=== PATIENT | male | born 1980 | race Asian ===

== ENCOUNTER 2023-04-01 12:20 | Emergency (ER) | payer SELFPAY ==
[2023-04-01 12:22] VITALS: BP 128/78
[2023-04-01 13:46] VITALS: BP 117/94; BMI 25.7
--- NOTE | 2023-04-01 14:10 | ED.GENMED ---
History of Present Illness
General
Chief Complaint: Musculo-Skeletal Complaint
Source: patient
Exam Limitations: none
Time Seen by Provider: 04/01/23 12:53
Nursing documentation reviewed up to this point in time: agreed with
Travel History
Have you had any contact with someone who has COVID-19?: No
Do you have any symptoms of coronavirus? Fever > 100 degrees, chills, cough, shortness of breath, sore throat, loss of taste or smell, muscle aches, or headache?: No
History of Present Illness
History of Present Illness:
43-year-old male with past medical history of hyperlipidemia presenting to the emergency department today with concerns of right upper neck and back discomfort over the past few days with some radiation down his right arm today. Denies any chest
pain shortness of breath nausea vomiting diaphoresis. Denies any known history of heart disease. Denies any family history of early heart disease but his father had heart disease in his 60s. Denies any history of recent trauma surgery
immobilization blood clots leg swelling or any risk factors for PE.
Review of Systems
Review of Systems
Allergies reviewed?: Yes
All Other Systems: ROS reviewed and negative except as documented in HPI and ROS
Phy Exam
Physical Exam
Physical Exam:
GENERAL: Alert , in no apparent distress
EYE: pupils equal and reactive
NECK: Supple, no significant adenopathy.
ENT: o/p clr, mmm.
CARDIAC: Regular rate and rhythm .
LUNGS: Clear breath sounds bilaterally, no acute respiratory distress, no wheezes/rales/rhonchi
ABDOMEN: Soft, without focal tenderness, no r/g, no cvat
NEUROLOGICAL: Alert and oriented, no focal neuro deficits
SKIN: Warm and dry, skin intact.
MUSCULOSKELETAL: Reproducible discomfort to the right trapezius muscle no midline neck pain radiation down the right arm with certain movements of the neck and head. Reproducible pain with shrugging of the right shoulder no overlying swelling no
redness or warmth, well perfused.
PSYCH: Normal and appropriate interaction.
Course
Orders/Labs/Results
Orders:
Orders
04/01/23 12:25
Electrocardiogram (*1) Urgent
Reason for Study: Chest Pain
EKG- Treatment ONCE
Vital Signs
Initial and Last Documented VS:
Initial Vital Signs
Temp Pulse Resp BP Pulse Ox
98.4 F 72 16 128/78 98
04/01/23 12:22 04/01/23 12:22 04/01/23 12:22 04/01/23 12:22 04/01/23 12:22
Last Documented Vital Signs
Temp Pulse Resp BP Pulse Ox
98.4 F 66 16 117/94 99
04/01/23 12:22 04/01/23 13:46 04/01/23 13:46 04/01/23 13:46 04/01/23 13:46
MDM/Problems Addressed
MDM/Problems Addressed:
43-year-old male presenting to the emergency department today with concerns of right upper and posterior neck and upper back discomfort over the past few days with some discomfort rating down the right arm. Symptoms seem to be consistent with
radicular discomfort. Is reproducible to palpation and with movement. EKG is normal sinus very unlikely consistent with referred. Plan for symptomatic treatment and close outpatient follow-up return precautions given.
*Critical Care Note
Total Time (30-74mins, 75-104mins- exclusive of procedures): Not Applicable
ED Attending Note
-
Portions of this chart may have been created with voice recognition software.� Occasional wrong word or��sound alike� substitutions may have occurred due to the inherent limitations of voice recognition software.
Discharge Plan
Departure
Patient Disposition: Home (Routine Discharge)
Date of Disposition: 04/01/23
Time of Disposition: 14:12
Patient with high blood pressure during this ER visit?: No
Condition: Good
Covid-19: Not Applicable
Discharge Problem:
Neck pain
Instructions: Muscle and Bone Pain (DC)
Prescriptions:
New
ibuprofen 600 mg tablet
600 mg PO Q6H PRN (Reason: Pain) Qty: 14 0RF
cyclobenzaprine 10 mg tablet
10 mg PO HS PRN (Reason: muscle spasm) Qty: 7 0RF
No Action
acetaminophen [Tylenol Ex Str Rapid Release] 500 mg Tablet
1,000 mg PO Q6H PRN (Reason: as directed)
fenofibrate 160 mg Tablet
160 mg PO DAILY
Activity Restrictions/Additional Instructions:
You came to the emergency department today with concerns of upper back and neck discomfort. Here you had a normal EKG which was very reassuring. This is likely a muscle strain. Please rest and take the medications as prescribed over the next few
days. Return to the emergency department for any worsening, new or concerning symptoms.
Interventions
Interventions:
*General Assessment Last Done: 04/01/23 12:22
*Neglect/Abuse Screening Last Done: 04/01/23 12:35
ED- Fall Risk Assessment Last Done: 04/01/23 12:35
*ED COVID-19 Vaccine History Last Done: 04/01/23 12:22
ED-Musculoskeletal Assessment Last Done: 04/01/23 12:32
[2023-04-01] MEDS: TYLENOL 650 MG PO (14:35)
[2023-04-01] MEDS: MOTRIN 600 MG PO (14:36)
== END 2023-04-01 14:45 | disposition home or self-care (01) ==
LOC: EMR 12:20
PROVIDERS: EMERGENCY PHYSICIAN Emergency Medicine; FAMILY PHYSICIAN Family Medicine
DX: M54.2 Cervicalgia (principal); M54.6 Pain in thoracic spine; M79.601 Pain in right arm; E78.5 Hyperlipidemia, unspecified; Z90.49 Acquired absence of other specified parts of digestive tract; Z82.49 Family history of ischemic heart disease and other diseases of the circulatory system
CPT/HCPCS: 99283; 93005

== ENCOUNTER 2024-08-14 11:26 | Emergency (ER) | payer OTHER, SELFPAY ==
[2024-08-14 11:27] VITALS: BP 127/81
[2024-08-14 11:59] VITALS: BMI 26.2
--- NOTE | 2024-08-14 12:01 | ED.GENMED ---
History of Present Illness
General
Chief Complaint: Back Pain
Source: patient and spouse
Exam Limitations: none
Time Seen by Provider: 08/14/24 11:46
Nursing documentation reviewed up to this point in time: agreed with
History of Present Illness
History of Present Illness:
Note:
CHIEF COMPLAINT(S)
Back pain.
HISTORY OF PRESENT ILLNESS
The patient is a 44-year-old male presenting with back pain. The symptoms began three to four days ago, with pain located on both the left and right sides of the back. The patient reports no specific injury or event associated with the onset. He
denies taking medication for the pain. The pain is neither aggravated nor relieved by activity, and he speculates it may have begun during sleep. 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 Past medical history is
significant for hypertriglyceridemia and hyperlipidemia. Recent laboratory results show a glucose level of 106 mg/dL and a hemoglobin A1c of 6.8%, suggesting a borderline diabetic state. His primary care physician ordered these tests, and he is
awaiting a follow-up appointment on August 26.
ALLERGIES
No known drug allergies.
MEDICATIONS
The patient takes fenofibrate 160 mg for hypertriglyceridemia and a statin (possibly atorvastatin) for hyperlipidemia. There is mention of taking supplemental fiber and estrogen.
PHYSICAL EXAM
- General: No acute distress.
- Cardiovascular: Normal S1, S2, no S3, S4, no murmurs.
- Pulmonary: Lungs clear bilaterally, no respiratory distress.
- Abdomen: Soft, non-tender, no costovertebral angle (CVA) tenderness.
- Musculoskeletal: No step-off on spinal exam, no tenderness to palpation.
- Neurological: Cranial nerves II-XII intact.
- Extremities: No edema, normal pulses.
PLAN
The plan includes obtaining a back X-ray and administering pain medication. A urine sample will also be requested for further evaluation. The patient is advised to continue follow-up with his primary care physician for management of blood glucose
levels and potential initiation of metformin.
DIFFERENTIAL DIAGNOSIS
The Differential Diagnosis includes, in no particular order and is not limited to:
1. Muscular strain
2. Intervertebral disc disease
3. Spinal stenosis
4. Kidney stone
5. Urinary tract infection
6. Pyelonephritis
7. Osteoarthritis
8. Fracture
9. Abdominal aortic aneurysm
10. Pancreatitis
CARE-UPDATE
08/14/24 - 14:31
Urinalysis results are normal, with no glucose detected. Back x-ray indicates no degenerative changes, suggesting muscle strain rather than kidney stones or infections. Recommended treatment includes Tylenol or ibuprofen, supplemented with heat and
ice application. Patient reassured and deemed fit for discharge.
Disposition:
SUMMARY OF ENCOUNTER
The patient, a 44-year-old male, presented with back pain without a specific injury. After evaluation, the condition was identified as a muscle strain.
DISPOSITION
The patient was discharged home in good condition with instructions for pain management and follow-up.
PLAN
The patient is advised to take Tylenol or ibuprofen for pain relief. He is also advised to follow up with the primary care physician for elevated blood sugar management.
INDEPENDENT REVIEW OF LABS AND INTERPRETATION OF TESTS
My independent interpretation of the back X-ray is that there are no degenerative changes, supporting a diagnosis of muscle strain. The urinalysis results are normal, with no glucose detected.
MEDICATION RECONCILIATION
The patient is instructed to use [id number] pain medications such as Tylenol or ibuprofen.
MEDICAL DECISION MAKING
1. Number & Complexity of Problems: Chronic conditions affecting care include hypertriglyceridemia and hyperlipidemia. The differential diagnoses considered for back pain clarified the condition as muscle strain.
2. Data Reviewed: Reviewed the back X-ray and urinalysis results.
3. Risk: Outpatient management was deemed appropriate given the lack of high-risk findings or emergency conditions. Pain medications were considered appropriate for discharge.
PATIENT EDUCATION AND COUNSELING
The patient was reassured about the benign nature of his condition and educated on proper use of pain relief methods including medication, heat, and ice application.
FOLLOW-UP INSTRUCTIONS
The patient is to follow up with primary care for further evaluation of blood glucose levels and management.
PATHOLOGIES TO CONSIDER
Muscular strain was diagnosed, with consideration given to exclude serious conditions such as intervertebral disc disease, spinal stenosis, kidney stones, urinary tract infections, and abdominal conditions like AAA or pancreatitis.
Phy Exam
Physical Exam
Physical Exam:
.
Course
Orders/Labs/Results
Orders:
Orders
08/14/24 12:00
Bedside Glucose- Treatment ONCE
Lumbar Spine Complete, 4 View [CR Lumbar Spine Comp Min 4 Vw*] Urgent
Comment:
Reason For Exam: low back pain
08/14/24 12:17
Urinalysis Reflex To Culture Urgent
Date Specimen was Collected: 08/14/24
Time Specimen was Collected: 12:16
Abnormal Lab Results
08/14/24
12:02
POC Glucose 185 H mg/dl
(70-99)
Vital Signs
Initial and Last Documented VS:
Initial Vital Signs
Temp Pulse Resp BP Pulse Ox
97.7 F 74 15 127/81 94
08/14/24 11:27 08/14/24 11:27 08/14/24 11:27 08/14/24 11:27 08/14/24 11:27
Last Documented Vital Signs
Temp Pulse Resp BP Pulse Ox
97.7 F 74 15 127/81 94
08/14/24 11:27 08/14/24 11:27 08/14/24 11:27 08/14/24 11:27 08/14/24 12:01
*Pulse Oximetry
SaO2: 94
Oxygen Mode of Delivery: Room air
Patient hypoxic: no
*Critical Care Note
Total Time (30-74mins, 75-104mins- exclusive of procedures): Not Applicable
ED Attending Note
-
Portions of this chart may have been created with voice recognition software.� Occasional wrong word or��sound alike� substitutions may have occurred due to the inherent limitations of voice recognition software.
Discharge Plan
Departure
Patient Disposition: Home (Routine Discharge)
Date of Disposition: 08/14/24
Time of Disposition: 14:32
Patient with high blood pressure during this ER visit?: Yes
Condition: Good
Discharge Problem:
Low back strain, Diabetes mellitus
Instructions: Low Back Pain (DC), Diabetes and diet, BLOOD PRESSURE
Prescriptions:
No Action
acetaminophen [Tylenol Ex Str Rapid Release] 500 mg Tablet
1,000 mg PO Q6H PRN (Reason: as directed)
fenofibrate 160 mg Tablet
160 mg PO DAILY
ibuprofen 600 mg tablet
600 mg PO Q6H PRN (Reason: Pain) Qty: 14 0RF
cyclobenzaprine 10 mg tablet
10 mg PO HS PRN (Reason: muscle spasm) Qty: 7 0RF
Referrals:
Gilberto Means DO [Family Provider, Family Practice] - Call in 1-3 days for appt
Activity Restrictions/Additional Instructions:
Follow-up with primary care for your diabetes. You may need to start on an oral medication. Discussed that with your primary care physician. Return for any concerns.
Interventions
Interventions:
*Risk Screen - Suicide Last Done: 08/14/24 11:27
*General Assessment Last Done: 08/14/24 11:27
*Neglect/Abuse Screening Last Done: 08/14/24 11:27
*ED COVID-19 Vaccine History Last Done: 08/14/24 11:29
ED-Musculoskeletal Assessment Last Done: 08/14/24 12:33
Discharge Date and Time
Print Language: KAZAKH
[2024-08-14 12:04] LABS: Glucose - Point of Care 185 mg/dl (70-99)
[2024-08-14 12:29] LABS: Urine Albumin Negative (Neg - Trace); Urine Bilirubin Negative (Negative); Urine Character Clear (Clear); Urine Color Yellow; Urine Glucose Negative (Negative); Urine Ketone Negative (Negative); Urine Leukocyte Negative (Negative); Urine Nitrite Negative (Negative); Urine Occult Blood Negative (Negative); Urine Specific Gravity 1.025 (<1.030); Urine Urobilinogen Negative (Neg - 1+)
== END 2024-08-14 14:49 | disposition home or self-care (01) ==
LOC: EMR 11:26
PROVIDERS: EMERGENCY PHYSICIAN Emergency Medicine; FAMILY PHYSICIAN Family Medicine
DX: S39.012A Strain of muscle, fascia and tendon of lower back, initial encounter (principal); X58.XXXA Exposure to other specified factors, initial encounter; E11.9 Type 2 diabetes mellitus without complications; E78.1 Pure hyperglyceridemia
CPT/HCPCS: 99283; 72110; 81003; 82962